=== PATIENT | male | born 1955 | race Caucasian/White ===

== ENCOUNTER 2021-05-16 14:28 | Emergency (ER) | payer OTHER ==
[~2021-05-16] VITALS: Ht 193 cm; Wt 113.4 kg
[~2021-05-16 14:28] MED LIST: CLINDAMYCIN HC300 MG PO; CRUTCH1 EACH MC; IBUPROFEN800 MG PO; NORCO 5-325 TA1 EACH PO
[2021-05-16] MEDS ORDERED: ONDANSETRON ODT8 MG PO (17:37)
[2021-05-16] MEDS ORDERED: FLOMAX0.4 MG PO (17:37)
[2021-05-16] MEDS ORDERED: HYDROCODON-ACE1 EA11 PO (17:37)
== END 2021-05-16 17:52 | disposition home or self-care (01) ==
LOC: ED 14:28
DX: N13.2 Hydronephrosis with renal and ureteral calculous obstruction (principal); I10 Essential (primary) hypertension; F17.200 Nicotine dependence, unspecified, uncomplicated; Z88.5 Allergy status to narcotic agent; Z79.899 Other long term (current) drug therapy; R73.9 Hyperglycemia, unspecified
CPT/HCPCS: 74176; 80053; 81001; 85025; 85610; 96374; 96375; 99284-25; J1885; J2405; J7030

== ENCOUNTER 2025-04-26 18:24 | Emergency (ER) | payer MEDICARE, OTHER ==
[~2025-04-26] VITALS: Ht 193 cm; Wt 96.0 kg
[~2025-04-26 18:24] MED LIST changes: +FLOMAX0.4 MG PO; +HYDROCODON-ACE1 EA11 PO; +ONDANSETRON ODT8 MG PO; +TYLENOL325 M1 PO
[2025-04-26] MEDS ORDERED: SODIUM CHLORIDE 0.9% 1,000 ML IV ONE (20:00)
[2025-04-26] MEDS ORDERED: ondansetron HCL 4 MG/2 ML VIAL IV ONE (20:00)
[2025-04-26] MEDS ORDERED: HYDROmorphone HCL 1 MG/ML SYR IV PRN (20:00)
[2025-04-26 20:13] LABS: BASOPHILS 0.8 % (0.2-1.2); EOSINOPHILS 2.8 % (0.8-7.0); HEMATOCRIT 48.3 % (40.1-51.0); HEMOGLOBIN 16.9 g/dL (13.7-17.5); LYMPHOCYTES 16.4 % (21.8-53.1); MCH 28.5 PG (25.7-32.2); MCV 81.5 fL (79.0-92.2); MONOCYTES 8.3 % (5.3-12.2); NEUTROPHILS 71.4 % (34.0-67.9); PLATELET COUNT 240 K/uL (163-337); RBC 5.93 M/uL (4.63-6.08)
[2025-04-26 20:29] LABS: ALBUMIN 3.7 g/dL (3.4-5.0); ALBUMIN/GLOBULIN RATIO 1.03 (1.1-2.4); BUN/CREATININE RATIO 12.72 (6.0-28.6); CALCIUM 9.6 mg/dL (8.5-10.1); CREATININE, SERUM 1.1 mg/dL (0.70-1.30); PROTEIN, TOTAL 7.3 g/dL (6.4-8.2)
[2025-04-26] MEDS ORDERED: ONDANSETRON ODT8 MG PO (21:58)
[2025-04-26] MEDS ORDERED: HYDROCODON-ACE1 EA10 PO (21:58)
[2025-04-26 22:27] VITALS: BP 160/100
== END 2025-04-26 22:29 | disposition home or self-care (01) ==
LOC: ED 18:24
PROVIDERS: Family Medicine
DX: K52.9 Noninfective gastroenteritis and colitis, unspecified (principal); I10 Essential (primary) hypertension; F17.200 Nicotine dependence, unspecified, uncomplicated; Z88.5 Allergy status to narcotic agent
CPT/HCPCS: 36415; 74177; 80053; 83690; 85025; 96361; 96375; 99284-25; J1171; J2405; J7030; Q9967